=== PATIENT | female | born 1975 | race Hispanic/Latino ===

== ENCOUNTER → 2017-10-21 | Outpatient (CLI) | payer OTHER ==
[~2017-10-21] MED LIST: ANTIVERT PO; FENOFIBRATE160 MG PO; IOPAMIDOL 370 MG/ML 200 ML INFUS..BTL INJ ONE; LEVOCETIRIZINE D5 MG PO; MULTIVITAMINS1 EAC8 PO; PREMARIN0.625 MG PO; SODIUM CHLORIDE 0.9% 50ML 50 ML ONE; SYNTHROID75 MCG PO; TRIAMTERENE-HC1 EAC2 PO; VENLAFAXINE HCL75 MG PO; XOPENEX HFA15 GM INH
[2017-10-21 16:41] LABS: BLOOD UREA NITROGEN 15 mg/dL (7-26); BUN/CREATININE RATIO 19 (6-25); CREATININE, SERUM 0.78 mg/dL (0.57-1.11); EST GLOMERULAR FILTRATION RATE > 60 ML/MIN (60-)
--- NOTE | 2017-10-21 17:38 | Diagnostic Imaging Report ---
EXAM: CT Abdomen WITH contrast INDICATION: \[id number] \S\[id number] \S\LEFTY UPPER QUADRANT PAIN COMPARISON: CT dated 12/24/2016 TECHNIQUE: Abdomen was scanned utilizing a multidetector helical scanner from the lung base to the iliac crest after administration of IV contrast. Coronal and sagittal reformations were obtained. Routine protocol was performed. Scan was performed when during portal venous phase. IV CONTRAST: 100 mL of Isovue-370 ORAL CONTRAST: Water COMPLICATIONS: None RADIATION DOSE: Total DLP: 515.22 mGy*cm Estimated effective dose: (DLP x 0.015 x size factor) mSv CTDIvol has been reviewed. It is below the limits set by the Radiation Protocol Committee (RPC). FINDINGS: LINES and TUBES: None. LOWER THORAX: Unremarkable HEPATOBILIARY: No focal hepatic lesions. No biliary ductal dilation. GALLBLADDER: Surgically absent. SPLEEN: No splenomegaly. PANCREAS: No focal masses or ductal dilatation. ADRENALS: No adrenal nodules KIDNEYS/URETERS: Kidneys enhance symmetrically. No hydronephrosis. No cystic or solid mass lesions. No stones. GI TRACT: No abnormal distention, wall thickening, or evidence of bowel obstruction. Partially visualized appendix is within normal limits. LYMPH NODES: No lymphadenopathy. VESSELS: Unremarkable. PERITONEUM / RETROPERITONEUM: No free air or fluid. BONES: Unremarkable. SOFT TISSUES: Unremarkable. IMPRESSION: 1. No acute inflammatory process in the abdomen to explain patient's symptoms. Signed by: Dr. Jesus Lange MD on 10/21/2017 5:35 PM
--- NOTE | 2017-10-21 17:48 | Diagnostic Imaging Report ---
EXAM: CT Chest WITHOUT contrast INDICATION: \[id number] \S\[id number] \S\PULMONARY NODULES COMPARISON: Chest CT dated 03/04/2013 TECHNIQUE: Chest was scanned utilizing a multidetector helical scanner from the lung apex through the level of the adrenal glands without administration of IV contrast. Absence of intravenous contrast decreases sensitivity for detection of lymphadenopathy and vascular pathology. Coronal and sagittal reformations were obtained. Routine protocol was performed. IV CONTRAST: None COMPLICATIONS: None RADIATION DOSE: Total DLP: 237.6 mGy*cm Estimated effective dose: (DLP x 0.014 x size factor) mSv CTDIvol has been reviewed. It is below the limits set by the Radiation Protocol Committee (RPC). FINDINGS: LINES/ TUBES: None. LUNGS AND AIRWAYS: Unchanged nonspecific 4 mm right upper lobe nodule (series 3, image 21). There is also a punctate right upper lobe nodule (3/36) which has also been stable since 2013. Unchanged punctate subpleural posterior left lower lobe nodule (3/83). Airways are normal. PLEURA: The pleural spaces are clear. HEART AND MEDIASTINUM: The thyroid gland is normal. No mediastinal, hilar or axillary lymphadenopathy. The heart is normal in size.. There is no pericardial effusion. Main pulmonary artery measures 3.1 cm, which is borderline distended. UPPER ABDOMEN: Please refer to the dedicated CT abdomen report of the same date. BONES: The visualized bony thorax is within normal limits. SOFT TISSUES: Unremarkable. IMPRESSION: Stable nonspecific subcentimeter lung nodules when compared to chest CT dated 03/05/2013. Signed by: Dr. Jesus Lange MD on 10/21/2017 5:44 PM
== END | disposition home or self-care (01) ==
LOC: CT 15:53
PROVIDERS: ATTEND Internal Medicine
DX: R10.12 Left upper quadrant pain (principal); R91.8 Other nonspecific abnormal finding of lung field
CPT/HCPCS: 36415; 71250; 74160; 82565; 84520; Q9967

== ENCOUNTER → 2018-01-30 | Outpatient (CLI) | payer OTHER ==
[~2018-01-30] MED LIST changes: -IOPAMIDOL 370 MG/ML 200 ML INFUS..BTL INJ ONE; -SODIUM CHLORIDE 0.9% 50ML 50 ML ONE
== END ==
LOC: MAMMO 09:33
PROVIDERS: ATTEND Internal Medicine
DX: Z12.31 Encounter for screening mammogram for malignant neoplasm of breast (principal)
CPT/HCPCS: 77067

== ENCOUNTER → 2018-02-26 | Outpatient (CLI) | payer OTHER ==
--- NOTE | 2018-02-27 09:38 | Diagnostic Imaging Report ---
EXAM: DXA BONE DENSITY INDICATIONS: ESTROGEN DEFICIENCY COMPARISON: None. FINDINGS: Proximal left femur bone mineral density (BMD) (g/cm2):1.133 Femur T-score (standard deviation relative to young adult mean BMD): 1.6 Femur Z-score (standard deviation relative to age-matched control group):1.8 Lumbar bone mineral density (BMD) (g/cm2):1.259 Lumbar T-score (standard deviation relative to young adult mean BMD): 1.9 Lumbar Z-score (standard deviation relative to age-matched control group):2.4 Change since prior exam (%): Femur:Not applicable. Spine:Not applicable. Change since oldest prior exam (%): Femur:Not applicable. Spine:Not applicable. CONCLUSION: 1. Bone mineral density in the left femur is classified as normal. Fracture risk is not increased. 2. Bone mineral density in the spine is classified as normal. Fracture risk is not increased. World Health Organization Classification: *The Z-score is provided for informational purposes. The T-score is preferable for clinical decisions. When comparing exams, a change of >4% is considered statistically significant. SUGGESTED RECOMMENDATIONS: Normal \T\ Osteopenia:Consideration should be given to use of calcium supplementation, daily multiple vitamins and adequate exercise, as preventive measures against osteoporosis, if clinically indicated. Osteoporosis \T\ Severe Osteoporosis:In addition to the above, consideration should be given to medical therapy against osteoporosis, if clinically indicated. Carter Bethea D.O. Dictated by: Carter Bethea D.O. on 02/27/2018 at 7:48 Electronically approved by: Carter Bethea D.O. on 02/27/2018 at 7:48
--- NOTE | 2018-02-27 16:10 | Diagnostic Imaging Report ---
#[id number] - USBRECOMLT ULTRASOUND OF THE LEFT BREAST : 02/26/2018 No prior exams were available for comparison. Color flow and real-time ultrasound were performed on the entire left breast with scanning in all four quadrants, retroareolar region and the left axilla. -At 2 o'clock 4 cm from the nipple there is 6 x 4 x 6 mm cyst with some debris IMPRESSION: BENIGN There is no sonographic evidence of malignancy. A 1 year screening mammogram is recommended. Carter Bethea Jr., D.O. cw/:02/27/2018 07:52:26 Payroll Technician: MIO GUTIERREZ, [facility] letter sent: Normal Exam Ultrasound BI-RADS: 2 Benign
--- NOTE | 2018-02-27 16:10 | Diagnostic Imaging Report ---
#[id number] - USBRECOMRT ULTRASOUND OF THE RIGHT BREAST : 02/26/2018 No prior exams were available for comparison. Color flow and real-time ultrasound were performed on the entire right breast with scanning in all four quadrants, retroareolar region and the right axilla. -At 12 o'clock 1 cm from the nipple is a simple cyst measuring 5 x 3 x 3 mm. IMPRESSION: BENIGN There is no sonographic evidence of malignancy. A 1 year screening mammogram is recommended. Carter Bethea Jr., D.O. cw/:02/27/2018 07:49:59 Body Coverer: MIO GUTIERREZ, [facility] letter sent: Normal Exam Ultrasound BI-RADS: 2 Benign
== END ==
LOC: US 14:18
PROVIDERS: ATTEND Internal Medicine
DX: R92.2 Inconclusive mammogram (principal); E28.39 Other primary ovarian failure
CPT/HCPCS: 77080

== ENCOUNTER → 2019-02-16 | Outpatient (CLI) | payer OTHER ==
--- NOTE | 2019-02-16 16:11 | Diagnostic Imaging Report ---
#[id number] - USBRECOMLT ULTRASOUND OF THE LEFT BREAST : 02/16/2019 Comparison is made to exam dated: 02/26/2018 ultrasound - [facility]. Color flow and real-time ultrasound were performed on the left breast. Villalobos scale images of the real-time examination were reviewed. There is an oval nodule with a circumscribed margin in the left breast at 2 o'clock position. This oval nodule is hypoechoic and probably represents hemorragic conversion of previous simple cyst seen in this area. Color flow imaging demonstrates that there is no vascularity present. There is no posterior acoustic shadowing. IMPRESSION: PROBABLY BENIGN - FOLLOW-UP RECOMMENDED The oval nodule in the left breast most likely is a complicated cyst and is probably benign. A follow-up in 6 months is recommended. A follow-up left breast ultrasound in 6 months is recommended to demonstrate stability. The patient has been or will be contacted. Felix Marroquin M.D. km/:02/16/2019 12:16:30 Lead Engineer: Aldo Britt RDMN, [facility] letter sent: Followup Recommended Ultrasound BI-RADS: 3 Probably benign
--- NOTE | 2019-02-16 16:11 | Diagnostic Imaging Report ---
#[id number] - USBRECOMRT ULTRASOUND OF THE RIGHT BREAST : 02/16/2019 Comparison is made to exam dated: 02/26/2018 ultrasound - [facility]. Color flow and real-time ultrasound were performed on the right breast. A 6mm simple appearing cyst is noted in the 11 oclock position of the right breast. There is no suspicious mass or nodule. IMPRESSION: BENIGN There is no sonographic evidence of malignancy in the right breast. The right breast can be followed with annual mammography. Please see report of left breast ultrasound from same date for separate follow up recommendations for left breast. Felix Marroquin M.D. km/:02/16/2019 12:21:25 Asbestos Remover: Aldo Britt [facility], [facility] letter sent: Normal Exam Ultrasound BI-RADS: 2 Benign
--- NOTE | 2019-02-16 16:11 | Diagnostic Imaging Report ---
#[id number] - MGDXBIL #BILATERAL DIGITAL DIAGNOSTIC MAMMOGRAM WITH CAD: 02/16/2019 Comparison is made to exams dated: 01/30/2018 mammogram and 10/06/2015 mammogram - [facility]. There are scattered fibroglandular elements in both breasts. Current study was also evaluated with a Computer Aided Detection (CAD) system. There are benign scattered calcifications in both breasts. No significant masses, calcifications, or other findings are seen in either breast. IMPRESSION: INCOMPLETE: NEEDS ADDITIONAL IMAGING EVALUATION No mammographic abnormality within either breast. However, a follow up bilateral breast ultrasound is being performed on same date for evaluation of reported palpable findings. These examinations are reported separately. Felix Marroquni M.D. km/:02/16/2019 11:48:27 Canvas Cutter Hand: Mariela KELLY)(Eyad), [facility] Mammogram BI-RADS: 0 Indeterminate
== END ==
LOC: MAMMO 10:31
PROVIDERS: ATTEND Internal Medicine
DX: R92.1 Mammographic calcification found on diagnostic imaging of breast (principal)
CPT/HCPCS: 77066

== ENCOUNTER → 2019-06-30 | Outpatient (CLI) | payer OTHER ==
--- NOTE | 2019-07-01 10:19 | Diagnostic Imaging Report ---
#[id number] - USBRECOMLT ULTRASOUND OF THE LEFT BREAST : 06/30/2019 Comparison is made to exams dated: 02/16/2019 ultrasound, 02/26/2018 ultrasound and 06/30/2019 ultrasound - [facility]. Real-time ultrasound was performed on the left breast. There is a 6 mm oval circumscribed lesion in the left breast at 2 o'clock in the retroareolar region which is unchanged. No other lesions are identified. IMPRESSION: PROBABLY BENIGN - FOLLOW-UP RECOMMENDED The 6 mm probable complicated cyst in the left breast is probably benign. A follow-up mammogram and an ultrasound in 6 months is recommended to demonstrate stability. The patient will be due for bilateral mammogram in February 2020. KARLA YOUNG M.D. ct/:06/30/2019 17:02:19 Computed Tomography Scanner Operator: WILLIAM GALLEGOS RDMS, [facility] letter sent: Followup Recommended Ultrasound BI-RADS: 3 Probably benign
--- NOTE | 2019-07-01 10:19 | Diagnostic Imaging Report ---
#[id number] - USBRECOMRT ULTRASOUND OF THE RIGHT BREAST : 06/30/2019 Comparison is made to exams dated: 02/16/2019 ultrasound, 02/26/2018 ultrasound and 02/16/2019 mammogram - [facility]. Real-time ultrasound was performed on the right breast. There is a benign 6 mm oval cyst in the right breast at 11 o'clock posterior depth. This oval cyst is anechoic. There are no suspicious solid or cystic masses identified. IMPRESSION: BENIGN There is no sonographic evidence of malignancy. The 6 mm oval cyst in the right breast is benign. See report for left breast ultrasound done at same time. KARLA YOUNG M.D. ct/:06/30/2019 16:52:11 Hospitality Housekeeper: WILLIAM GALLEGOS [facility], [facility] letter sent: Normal Exam Ultrasound BI-RADS: 2 Benign
== END ==
LOC: US 15:11
PROVIDERS: ATTEND Internal Medicine
DX: R92.8 Other abnormal and inconclusive findings on diagnostic imaging of breast (principal)

== ENCOUNTER → 2020-02-24 | Outpatient (CLI) | payer OTHER ==
--- NOTE | 2020-02-24 13:26 | Diagnostic Imaging Report ---
TECHNIQUE: Magnetic resonance imaging of the left ankle and foot was performed WITHOUT injected contrast. COMPARISON: None available. HISTORY: Fall, pain FINDINGS: LIGAMENTS: Medial Complex: Deltoid ligament intact. Lateral Complex: Edema along the anterior inferior tibiofibular ligament and extending along the syndesmosis. ATFL and CFL are intact. TENDONS: Medial: Posterior tibial and flexor tendons intact. Lateral: Peroneal tendons intact. Anterior: Anterior tibial and extensor tendons intact. Achilles: Achilles tendon intact. BONES: No focal or infiltrative bone marrow replacing abnormality. No acute fracture or osteonecrosis. JOINTS: Cartilage: No focal defect is identified involving the tibiotalar joint. Other: Ankle joint effusion. SOFT TISSUES: Soft tissue edema of the lateral ankle. The soft tissues of the forefoot are unremarkable. IMPRESSION: Ankle sprain involving the anterior inferior tibiofibular ligament and syndesmosis. Ankle joint effusion. Signed by: Dr. Tarun Menard M.D. on 02/24/2020 1:22 PM
--- NOTE | 2020-02-24 13:43 | Diagnostic Imaging Report ---
TECHNIQUE: Magnetic resonance imaging of the left knee and tibia fibula was performed WITHOUT injected contrast. HISTORY: Pain COMPARISON: None available. FINDINGS: LIGAMENTS AND TENDONS: ACL: Intact PCL: Intact Collateral ligaments: Medial collateral ligament partial tear. Iliotibial band: Unremarkable Popliteal tendon: Intact Extensor mechanism: Intact JOINT: Menisci: Medial: Degenerative signal without discrete tear. Lateral: Intact Articular Cartilage: Medial Compartment: No focal defect. Lateral Compartment: No focal defect. Patellofemoral Compartment: No focal defect. Joint Fluid: Small joint effusion. BONE: No focal or infiltrative bone marrow replacing abnormality. No acute fracture. SOFT TISSUES: Sprain of the anterior inferior tibiofibular ligament and syndesmosis. Adjacent soft tissue edema. IMPRESSION: Medial collateral ligament partial tear Small joint effusion Signed by: Dr. Tarun Menard M.D. on 02/24/2020 1:39 PM
== END ==
LOC: MRI 11:08
PROVIDERS: ATTEND Surgery
DX: M79.605 Pain in left leg (principal); W19.XXXA Unspecified fall, initial encounter

== ENCOUNTER → 2020-09-27 | Outpatient (CLI) | payer OTHER | LOC: MAMMO 09:03 | PROVIDERS: ATTEND Internal Medicine | DX: R92.2 Inconclusive mammogram (principal); R92.8 Other abnormal and inconclusive findings on diagnostic imaging of breast | CPT/HCPCS: 77066 ==

== ENCOUNTER → 2020-10-20 | Outpatient (CLI) | payer OTHER | LOC: RAD 15:12 | PROVIDERS: ATTEND Internal Medicine Rheumatology | DX: M54.5 Low back pain (principal); M25.512 Pain in left shoulder; M25.511 Pain in right shoulder; M25.532 Pain in left wrist; M25.531 Pain in right wrist; M79.642 Pain in left hand; M79.641 Pain in right hand; R07.89 Other chest pain; M13.0 Polyarthritis, unspecified | CPT/HCPCS: 71046; 72100 ==

== ENCOUNTER → 2020-11-21 | Outpatient (CLI) | payer OTHER | LOC: RAD 15:06 | PROVIDERS: ATTEND Specialist | DX: M79.89 Other specified soft tissue disorders (principal) | CPT/HCPCS: 93971 ==

== ENCOUNTER → 2020-12-13 | Day surgery (SDC) | payer OTHER ==
[2020-12-08 15:24] LABS: BASOPHILS # (AUTO) 0.1 (0.0-0.1); BASOPHILS % 0.7 % (0.0-1.0); EOSINOPHILS # (AUTO) 0.5 (0.0-0.4); HEMATOCRIT 36.4 % (34.2-44.1); HEMOGLOBIN 11.7 g/dL (12.0-16.0); LYMPHOCYTES # (AUTO) 2.1 (1.0-3.2); LYMPHOCYTES % 24.2 % (18.0-39.1); MEAN CORPUSCULAR HGB CONC 32.1 g/dL (31-35); MEAN CORPUSCULAR VOLUME 87.1 fL (81-99); MONOCYTES # (AUTO) 0.8 (0.2-0.8); MONOCYTES % 9.3 % (4.4-11.3); NEUTROPHILS # (AUTO) 5.1 (2.1-6.9); NEUTROPHILS % 59.5 % (38.7-80.0); PLATELET COUNT 436 x10e3/uL (140-360); RED BLOOD COUNT 4.18 x10e6/uL (3.6-5.1); RED CELL DISTRIBUTION WIDTH 13.3 % (11.7-14.4)
[2020-12-08 15:41] LABS: ANION GAP 14.6 mmol/L (8-16); CALCIUM 9.5 mg/dL (8.4-10.2); CREATININE, SERUM 1.23 mg/dL (0.57-1.11); POTASSIUM 3.6 mmol/L (3.5-5.1)
[~2020-12-13] MED LIST changes: +ASPIRIN EC81 MG PO; +BUPIVACAINE 0.5%/EPI 30 ML SDV INJ ONE; +CEFAZOLIN SOD 1 GM VIAL ONE; +CEFAZOLIN SOD 1 GM/NS 50ML 100 ML IV ONE; +DEXAMETHASONE SOD PHOS INJ 4 MG/ML VIAL ONE; +FENTANYL CITRATE/PF 100MCG/2 ML INJ ONE; +LIDOCAINE HCL 2% LOCAL INJ 5 ML SDV VIAL INJ ONE; +METOCLOPRAMIDE HCL 10 MG/2ML VIAL ONE; +ONDANSETRON HCL INJ 2MG/ML 2ML 2 MG/ML VIAL ONE; +PLAQUENIL200 MG PO; +POVIDONE IODINE 0.05% 0.05 % ML PO ONE; +PROPOFOL IV EMULSION 10 MG/ML 20 ML VIAL ONE; +SEVOFLURANE INHAL SOLN 250 ML PEN BTL ONE; +VITAMIN D PO; +XANAX1 MG PO
[2020-12-13 09:18] VITALS: BP 126/76
== END | disposition home or self-care (01) ==
LOC: OR 05:32
PROVIDERS: ATTEND Specialist
DX: S83.222A Peripheral tear of medial meniscus, current injury, left knee, initial encounter (principal); S93.432A Sprain of tibiofibular ligament of left ankle, initial encounter; S93.492A Sprain of other ligament of left ankle, initial encounter; S86.012A Strain of left Achilles tendon, initial encounter; S83.412A Sprain of medial collateral ligament of left knee, initial encounter; G47.33 Obstructive sleep apnea (adult) (pediatric); J45.909 Unspecified asthma, uncomplicated; E03.9 Hypothyroidism, unspecified; K21.9 Gastro-esophageal reflux disease without esophagitis; E16.2 Hypoglycemia, unspecified; I34.1 Nonrheumatic mitral (valve) prolapse; R01.1 Cardiac murmur, unspecified; X58.XXXA Exposure to other specified factors, initial encounter; Z88.6 Allergy status to analgesic agent; Z88.1 Allergy status to other antibiotic agents; Z01.810 Encounter for preprocedural cardiovascular examination; Z01.812 Encounter for preprocedural laboratory examination; Z01.818 Encounter for other preprocedural examination; Z20.822 Contact with and (suspected) exposure to COVID-19; Z79.82 Long term (current) use of aspirin
CPT/HCPCS: 29870; 36415; 71046; 80048; 85025; 93005; J0690 ×2; J1100; J2001; J2405; J2704; J2765; J3010; U0002

== ENCOUNTER → 2022-02-04 | Outpatient (CLI) | payer OTHER ==
[~2022-02-04] MED LIST changes: +BUPIVACAINE 0.25% 30ML SDV ONE; -BUPIVACAINE 0.5%/EPI 30 ML SDV INJ ONE; -CEFAZOLIN SOD 1 GM VIAL ONE; -CEFAZOLIN SOD 1 GM/NS 50ML 100 ML IV ONE; -DEXAMETHASONE SOD PHOS INJ 4 MG/ML VIAL ONE; -FENTANYL CITRATE/PF 100MCG/2 ML INJ ONE; +IOPAMIDOL 610MG/1ML 300 MG/ML VIAL IV ONE; -LIDOCAINE HCL 2% LOCAL INJ 5 ML SDV VIAL INJ ONE; -METOCLOPRAMIDE HCL 10 MG/2ML VIAL ONE; -ONDANSETRON HCL INJ 2MG/ML 2ML 2 MG/ML VIAL ONE; -POVIDONE IODINE 0.05% 0.05 % ML PO ONE; -PROPOFOL IV EMULSION 10 MG/ML 20 ML VIAL ONE; -SEVOFLURANE INHAL SOLN 250 ML PEN BTL ONE
== END ==
LOC: MAMMO 12:52
PROVIDERS: ATTEND Internal Medicine
DX: Z12.31 Encounter for screening mammogram for malignant neoplasm of breast (principal)
CPT/HCPCS: 77067; Q9967

== ENCOUNTER → 2022-10-31 | Outpatient (CLI) | payer OTHER ==
[~2022-10-31] MED LIST changes: -BUPIVACAINE 0.25% 30ML SDV ONE; -IOPAMIDOL 610MG/1ML 300 MG/ML VIAL IV ONE
== END ==
LOC: RAD 15:04
PROVIDERS: ATTEND Internal Medicine
DX: R07.81 Pleurodynia (principal)
CPT/HCPCS: 71111

== ENCOUNTER → 2024-04-06 | Outpatient (REF) | payer BC ==
[~2024-04-06] MED LIST changes: +GEMTESA75 MG PO
== END ==
LOC: MAMMO 15:16
PROVIDERS: ATTEND Internal Medicine
DX: Z12.31 Encounter for screening mammogram for malignant neoplasm of breast (principal); Z13.820 Encounter for screening for osteoporosis; Z78.0 Asymptomatic menopausal state
CPT/HCPCS: 77067; 77080

== ENCOUNTER → 2025-04-27 | Outpatient (REF) | payer BC | LOC: CT 15:45 | PROVIDERS: ATTEND Internal Medicine | DX: R93.89 Abnormal findings on diagnostic imaging of other specified body structures (principal) | CPT/HCPCS: 71250 ==